=== PATIENT | male | born 1975 | race Caucasian/White ===

== ENCOUNTER → 2020-03-22 09:48 | Outpatient (CLI) | payer OTHER, SELFPAY ==
[2020-03-22 10:34] LABS: Add Manual Diff / Slide Review NO; Basophils Absolute Auto 0 /uL (0-100); Basophils Percent Auto 0.1 % (0-2); Eosinophils Absolute Auto 200 /uL (0-450); Eosinophils Percent Auto 2.2 % (2-4); Hematocrit 49.6 % (41-53); Hemoglobin 17.4 g/dL (13.5-17.5); Lymphocytes Absolute Auto 3100 /uL (1100-4500); Lymphocytes Percent Auto 37.7 % (25-40); Mean Corpuscular HGB Conc 35.1 % (30-36); Mean Corpuscular Hemoglobin 31.7 PG (26-34); Mean Corpuscular Volume 90.4 fL (80-100); Monocytes Absolute Auto 600 /uL (0-900); Monocytes Percent Auto 7.1 % (3-14); Neutrophils Absolute Auto 4300 /uL (1500-7000); Neutrophils Percent Auto 52.9 % (50-75); Platelet Count 361 X10^3/uL (150-400); Red Blood Cell Count 5.48 X10^6/uL (4.5-5.9); Red Cell Distribution Width 13.1 % (11.6-14.8); White Blood Cell Count 8.2 X10^3/uL (4.5-11.0)
[2020-03-22 10:55] LABS: Alanine Aminotransferase 50 IU/L (<50); Albumin 4.7 g/dL (3.5-5.0); Albumin Globulin Ratio 1.4 (1.0-2.8); Alkaline Phosphatase 98 U/L (38-126); Aspartate Aminotransferase 51 IU/L (17-59); BUN Creatinine Ratio 19.8 (6-22); Bilirubin Total 0.6 mg/dL (0.2-1.3); Blood Urea Nitrogen 21 mg/dL (9-20); Calcium 9.4 mg/dL (8.4-10.2); Carbon Dioxide 29 mmol/L (22-32); Chloride 103 mmol/L (98-107); Estimated Glomerular Filt Rate > 60.0 mL/min (>60); Globulin 3.4 g/dL (1.7-4.1); Glucose 101 mg/dL (70-100); HEMOLYSIS 20 (0-50); Hemoglobin A1C% w Est Avg Glu 5.1 % (4.0-6.0); Potassium 4.6 mmol/L (3.4-5.1); Sodium 139 mmol/L (137-145); Total Protein 8.1 g/dL (6.3-8.2)
[2020-03-22 11:21] LABS: TSH w/ Reflex to FT4 0.94 uIU/mL (0.47-4.68)
[2020-03-22 11:26] LABS: Prostate Specific Antigen Scrn 2.86 ng/mL (0.1-4.0)
== END ==
PROVIDERS: PCP Family Medicine; Referring Provider Family Medicine; Visit Provider Family Medicine
DX: E34.9 Endocrine disorder, unspecified (principal); I10 Essential (primary) hypertension; K21.9 Gastro-esophageal reflux disease without esophagitis
CPT/HCPCS: 36415; 80053; 83036; 84443; 85025; G0103

== ENCOUNTER → 2020-11-04 09:09 | Outpatient (CLI) | payer OTHER, SELFPAY ==
[2020-11-10 08:42] LABS: Percent Free Testosterone 3.21 % (1.50-4.20); Testosterone Free 20.51 ng/dL (5.00-21.00); Testosterone Total 638.8 ng/dL (264.0-916.0)
[2020-11-14 13:49] LABS: Estrogen 48 pg/mL (40-115)
== END ==
PROVIDERS: PCP Family Medicine; Referring Provider Family Medicine; Visit Provider Family Medicine
DX: E34.9 Endocrine disorder, unspecified (principal)
CPT/HCPCS: 36415; 82672; 84402; 84403

== ENCOUNTER → 2021-06-02 11:39 | Outpatient (CLI) | payer OTHER, SELFPAY ==
[2021-06-02 12:53] LABS: Alanine Aminotransferase 51 IU/L (<50); Albumin 4.6 g/dL (3.5-5.0); Albumin Globulin Ratio 1.6 (1.0-2.8); Alkaline Phosphatase 83 U/L (38-126); Aspartate Aminotransferase 45 IU/L (17-59); BUN Creatinine Ratio 12.4 (6-22); Bilirubin Total 0.5 mg/dL (0.2-1.3); Blood Urea Nitrogen 14 mg/dL (9-20); Calcium 9.7 mg/dL (8.4-10.2); Carbon Dioxide 29 mmol/L (22-32); Chloride 104 mmol/L (98-107); Estimated Glomerular Filt Rate > 60.0 mL/min (>60); Globulin 2.8 g/dL (1.7-4.1); Glucose 108 mg/dL (70-100); HEMOLYSIS < 15 (0-50); Potassium 4.7 mmol/L (3.4-5.1); Sodium 140 mmol/L (137-145); Total Protein 7.4 g/dL (6.3-8.2)
[2021-06-02 13:20] LABS: Prostate Specific Antigen Scrn 5.05 ng/mL (0.1-4.0)
[2021-06-11 20:22] LABS: Percent Free Testosterone 4.96 % (1.50-4.20); Testosterone Total 681.5 ng/dL (264.0-916.0)
== END ==
PROVIDERS: PCP Family Medicine; Referring Provider Family Medicine; Visit Provider Family Medicine
DX: E34.9 Endocrine disorder, unspecified (principal); I10 Essential (primary) hypertension; Z12.5 Encounter for screening for malignant neoplasm of prostate
CPT/HCPCS: 36415; 80053; 84402; 84403; G0103

== ENCOUNTER 2021-09-23 16:17 | Emergency (ER) | payer OTHER, SELFPAY ==
[2021-09-23 16:23] VITALS: BP 147/102; PULSE 80; RESP 18; TEMP 36.6; O2SAT 98; BMI 29.2
[2021-09-23] MEDS: TET,DIPH,PERTUSS(ACELL),VAC/PF 0.5 ML SYRINGE IM (16:32)
--- NOTE | 2021-09-23 19:07 | ED.UPPEXIN ---
HPI - Extremity Injury (Upper) <SHANTAL Kearns - Last Filed: 09/23/21 20:25> General Chief Complaint: Extremity Injury, Upper Stated Complaint: Drill Bit Into Lt Arm Time Seen by Provider: 09/23/21 19:00 Source: patient Mode of arrival: Ambulatory History of Present Illness HPI narrative: 46-year-old male presents to the emergency department after a puncture wound to his right forearm. Patient states that he was using a drill bit when it broke, it bounced off, punctured the left forearm. He is right handed. He pulled the drill bit out of his left arm, denies any broken pieces left in, states that the broken piece happen before he was punctured by the drill bit. He does not remember when his last tetanus was, states he would like his tetanus updated. Patient denies any current bleeding, states he put a pressure dressing on and it has been fine since. He states that he cleaned it with hydrogen peroxide, applied antibiotic ointment and covered up. His wound is approximately 4 mm x 2 mm, denies any current bleeding. He has full range of motion of his left hand, left wrist, flexion extension without any sensation changes. Related Data Home Medications Medication Instructions Recorded Confirmed syringe with needle 3 mL 23 gauge #1 each 01/28/20 06/02/21 x 1 1/2 Previous Rx's Medication Instructions Recorded omeprazole 20 mg capsule,delayed 20 mg PO DAILY #90 cap 02/22/21 release ibuprofen 800 mg tablet 800 mg PO TID PRN #60 tab 03/18/21 testosterone cypionate 200 mg/mL 100 mg (0.5 mL) IM QWEEK #10 ml 05/09/21 intramuscular oil lisinopril 20 mg tablet 20 mg PO DAILY #90 tab 05/19/21 amlodipine 2.5 mg tablet See Rx Instructions .ROUTE 08/29/21 .COMPLEX #90 tab Allergies Allergy/AdvReac Type Severity Reaction Status Date / Time anthrax vaccine Allergy Severe full body Verified 06/02/21 11:06 hives tide detergent Allergy Severe full body Uncoded 06/02/21 11:06 hives Review of Systems <SHANTAL Kearns - Last Filed: 09/23/21 20:25> Review of Systems Narrative: General: denies fever, chills, malaise, sweats, fatigue Head/Neck: denies headache, neck pain, dizziness Eyes: denies visual changes, eye pain Cardio: denies chest pain, palpitations, edema Respiratory: denies dyspnea, cough, orthopnea GI: denies abdominal pain, nausea, vomiting, or diarrhea : denies dysuria, hematuria, urinary retention, frequency or incontinence MSK: denies joint pain, muscle weakness Skin: denies rash, itching, puncture wound to the volar aspect of left forearm Neuro: denies numbness, tingling Patient History <SHANTAL Kearns - Last Filed: 09/23/21 20:25> Medical History Ankle pain (~2008) Anxiety (~2014) Chronic back pain (~2004) Depression (~2014) Elevated PSA Foot pain (~2006) GERD (gastroesophageal reflux disease) Headache (~2002) Headache Hearing loss (~2004) Hypertension (~1999) Hypotestosteronism (~2014) Insomnia Irritable bowel syndrome (~2005) Lateral epicondylitis of both elbows PTSD (post-traumatic stress disorder) (~2014) Right rotator cuff tendinitis Shoulder pain (~2004) Sleep apnea Tinnitus (~2004) Well adult exam Surgical History Anesthesia History of appendectomy (~2007) History of cholecystectomy (~2005) S/P right rotator cuff repair (~2004) Family History Father Prostate cancer Mother Hypertension Social History Smoking Status: Never smoker alcohol intake: current (rarely ) substance use type: does not use Smoking Status: Never smoker alcohol intake frequency: holidays/special occasions only Substance Use Type: does not use Exam <SHANTAL Kearns - Last Filed: 09/23/21 20:25> Narrative Exam Narrative: Independently reviewed vitals signs and nursing notes. General: cooperative, comfortable, in no acute distress, well developed and well groomed Head: atraumatic, symmetrical facial expressions Neck: supple, atraumatic, without lymphadenopathy. Eyes: pupils equal round and reactive, EOMI, conjunctiva normal Nose: nares patent, no rhinorrhea Mouth/Throat: uvula midline, moist mucus membranes Cardiovascular: regular rate and rhythm, no peripheral edema, warm extremities Respiratory: normal effort, able to speak in complete sentences, no audible wheezing, stridor, or rales. No retractions or tachypnea. MSK: moves all extremities, ambulatory w/steady gait, neurovascularly intact, no weakness, radial pulse of left is 2+, ulnar pulse is palpable, cap refill less than 2 seconds in all fingers, full flexion and extension and mobility of left wrist and fingers without deficit or significant pain. Skin: brisk capillary refill, no rash, no erythema, puncture wound to left mid forearm on volar aspect, 4 mm x 2 mm, no bleeding, wound is clean, bacitracin applied, Telfa applied with Coban. No indications for suture repair. Neuro: normal speech and cognition, A&O x3, normal tone Psych: mental status is grossly normal, congruent mood, normal affect, pleasant and cooperative Initial Vital Signs Initial Vital Signs: Vital Signs Temperature 98 F 09/23/21 16:23 Pulse Rate 80 09/23/21 16:23 Respiratory Rate 18 09/23/21 16:23 Blood Pressure 147/102 H 09/23/21 16:23 Pulse Oximetry 98 09/23/21 16:23 <Nancie Rocha MD - Last Filed: 09/24/21 17:47> Initial Vital Signs Initial Vital Signs: Vital Signs Temperature 98 F 09/23/21 16:23 Pulse Rate 80 09/23/21 16:23 Respiratory Rate 18 09/23/21 16:23 Blood Pressure 147/102 H 09/23/21 16:23 Pulse Oximetry 98 09/23/21 16:23 Course <SHANTAL Kearns - Last Filed: 09/23/21 20:25> Orders Ordered: Discontinued Medications Diphtheria/Tetanus/Acell Pertussis (Tet,Diph,Pertuss(Acell),Vac/Pf 0.5 Ml Syringe) 0.5 ml IM .ONCE ONE Stop: 09/23/21 16:29 Last Admin: 09/23/21 16:32 Dose: 0.5 ml Documented by: SERJIO Vital Signs Vital signs: Vital Signs - 8 hr 09/23/21 16:23 09/23/21 19:35 Temperature 98 F Pulse Rate 80 90 Respiratory Rate 18 14 Blood Pressure 147/102 H 136/100 H Pulse Oximetry 98 96 <Nancie Rocha MD - Last Filed: 09/24/21 17:47> Orders Ordered: Discontinued Medications Diphtheria/Tetanus/Acell Pertussis (Tet,Diph,Pertuss(Acell),Vac/Pf 0.5 Ml Syringe) 0.5 ml IM .ONCE ONE Stop: 09/23/21 16:29 Last Admin: 09/23/21 16:32 Dose: 0.5 ml Documented by: SERJIO Vital Signs Vital signs: Vital Signs - 8 hr 09/23/21 16:23 09/23/21 19:35 Temperature 98 F Pulse Rate 80 90 Respiratory Rate 18 14 Blood Pressure 147/102 H 136/100 H Pulse Oximetry 98 96 MDM - Extremity Injury (Upper) <Indigo Camejo [facility] - Last Filed: 09/23/21 20:25> MDM Narrative Medical decision making narrative: This is a 46-year-old male presents to the emergency department for left forearm injury which occurred after his drill bit broke and he punctured himself with the remaining aspect of the drill bit. He pulled it out of his arm on his own, states it bled for a couple minutes and then it stopped. Patient received a tetanus vaccination today, took ibuprofen prior to arrival, states his pain is under control. No possibility of foreign body according to the patient. Wound was cleansed irrigated with normal saline, bacitracin applied, wrapped with a Telfa and Coban dressing. Encouraged patient to let wound heal without suture repair. Patient understands to return to the emergency department for any worsening of this, streaking, signs of infection, purulence discharge, or fever. Patient is appropriate and amenable to discharge home. Vital signs are stable on repeat examination is unremarkable. Patient has been informed of results. Patient has been given strict return to ER precautions for any new or worsening symptoms. Patient understands to follow up closely with outpatient providers as instructed. Patient understands plan and agrees to discharge home. All questions and concerns answered at this time. Discharge Plan Departure Patient Disposition: Home Clinical Impression: Puncture wound Instructions: DI for Puncture Wound Activity Restrictions/Additional Instructions: *You have been diagnosed with puncture wound to your left forearm. Please apply antibiotic ointment twice a day, keep it cover with at minimum a Band-Aid. Take ibuprofen or Tylenol as needed for your pain. You can ice this, that may help with some pain as well. Try to avoid repetitive movement of her left hand as much as possible over the next few days so that this can heal without getting angry. Please come back to the ER if you start having red streaks up your arm, worsening swelling or pain, or any fever. Thank you for coming in, your tetanus is good for the next 10 years, hope it heals without incident. Impressive injury. *What to do: *Please continue to take your regular medications as directed. [ ] New medication prescriptions sent to your pharmacy: [ ] [ ] New medication written as a paper prescription [ x] No new medications given *Please follow up with your primary care provider in 2-3 days, call for an appointment. Let them know you were seen in the Emergency Department and that we asked that you be seen for follow-up. We will electronically transmit a record of today's note if your PCP is in our system *If you do not have a primary care provider please contact [phone] to establish care with one of [facility] primary care providers. *Return to Emergency Department if you should have any new, worsening or concerning symptoms, such as [fever greater than 101F, chills, worsening pain, persistent vomiting or other bothersome symptoms] Prescriptions: No Action omeprazole 20 mg capsule,delayed release(DR/EC) 20 mg PO DAILY Qty: 90 3RF ibuprofen 800 mg tablet 800 mg PO TID PRN (Reason: pain) Qty: 60 2RF testosterone cypionate 200 mg/mL oil 100 mg IM QWEEK Qty: 10 2RF lisinopril 20 mg tablet 20 mg PO DAILY Qty: 90 3RF amlodipine 2.5 mg tablet See Rx Instructions .ROUTE .COMPLEX Qty: 90 1RF Dose Instruction: TAKE 1 TABLET BY MOUTH EVERY NIGHT AT BEDTIME Rx Instructions: TAKE 1 TABLET BY MOUTH EVERY NIGHT AT BEDTIME (DME) syringe with needle 3 mL 23 gauge x 1 1/2 syringe See Rx Instructions ml .ROUTE .MEDSUPPLY Qty: 1 0RF Rx Instructions: As directed Referrals: Stu Ortiz, [Primary Care Provider] - <Nancie Rocha MD - Last Filed: 09/24/21 17:47> Cosign ED Attending Cosjoseature Attestation: I was immediately available in the department for consultation throughout this patient's visit. I agree with documentation as above. Nancie Rocha MD
[2021-09-23 19:35] VITALS: BP 136/100; PULSE 90; RESP 14; O2SAT 96
== END 2021-09-23 19:35 | disposition home or self-care (01) ==
PROVIDERS: Emergency Provider Nurse Practitioner Critical Care Medicine; PCP Family Medicine
DX: S51.832A Puncture wound without foreign body of left forearm, initial encounter (principal); W27.8XXA Contact with other nonpowered hand tool, initial encounter; Z23 Encounter for immunization
CPT/HCPCS: 90471; 99283; 90715

== ENCOUNTER → 2022-02-09 12:42 | Outpatient (CLI) | payer OTHER, SELFPAY ==
[2022-02-09 14:50] LABS: Alanine Aminotransferase 52 IU/L (<50); Albumin 4.7 g/dL (3.5-5.0); Albumin Globulin Ratio 1.3 (1.0-2.8); Alkaline Phosphatase 77 U/L (38-126); Aspartate Aminotransferase 70 IU/L (17-59); BUN Creatinine Ratio 16.3 (6-22); Bilirubin Total 0.8 mg/dL (0.2-1.3); Blood Urea Nitrogen 20 mg/dL (9-20); Calcium 9.6 mg/dL (8.4-10.2); Carbon Dioxide 27 mmol/L (22-32); Chloride 105 mmol/L (98-107); Estimated Glomerular Filt Rate > 60 mL/min (>60); Globulin 3.5 g/dL (1.7-4.1); Glucose 95 mg/dL (70-100); HEMOLYSIS 20 (0-50); Potassium 4.6 mmol/L (3.4-5.1); Sodium 138 mmol/L (137-145); Total Protein 8.2 g/dL (6.3-8.2)
[2022-02-09 15:21] LABS: TSH w/ Reflex to FT4 1.14 uIU/mL (0.47-4.68)
[2022-02-09 15:23] LABS: Prostate Specific Antigen Scrn 3.53 ng/mL (0.1-4.0)
[2022-02-18 18:07] LABS: Testosterone Free 18.47 ng/dL (5.00-21.00); Testosterone Total 839.4 ng/dL (264.0-916.0)
== END ==
PROVIDERS: PCP Family Medicine; Referring Provider Family Medicine; Visit Provider Family Medicine
DX: E34.9 Endocrine disorder, unspecified (principal); R97.20 Elevated prostate specific antigen [PSA]; Z12.5 Encounter for screening for malignant neoplasm of prostate
CPT/HCPCS: 36415; 80053; 84402; 84403; 84443; G0103

== ENCOUNTER → 2022-06-21 07:20 | Outpatient (CLI) | payer OTHER, SELFPAY | PROVIDERS: PCP Family Medicine; Visit Provider Registered Nurse | DX: R30.0 Dysuria (principal) | CPT/HCPCS: 87086 ==

== ENCOUNTER → 2022-06-29 09:05 | Outpatient (CLI) | payer OTHER, SELFPAY | PROVIDERS: PCP Family Medicine; Visit Provider Family Medicine | DX: R30.0 Dysuria (principal) | CPT/HCPCS: 87086 ==

== ENCOUNTER → 2022-06-30 07:54 | Outpatient (CLI) | payer OTHER, SELFPAY ==
[2022-06-30 08:37] LABS: Add Manual Diff / Slide Review NO; Basophils Absolute Auto 0 /uL (0-100); Basophils Percent Auto 0.2 % (0-2); Eosinophils Absolute Auto 100 /uL (0-450); Eosinophils Percent Auto 0.8 % (2-4); Hematocrit 48.9 % (41-53); Hemoglobin 16.5 g/dL (13.5-17.5); Lymphocytes Absolute Auto 2500 /uL (1100-4500); Lymphocytes Percent Auto 21.8 % (25-40); Mean Corpuscular HGB Conc 33.7 % (30-36); Mean Corpuscular Hemoglobin 30.2 PG (26-34); Mean Corpuscular Volume 89.7 fL (80-100); Monocytes Absolute Auto 800 /uL (0-900); Monocytes Percent Auto 7.4 % (3-14); Neutrophils Absolute Auto 7900 /uL (1500-7000); Neutrophils Percent Auto 69.8 % (50-75); Platelet Count 408 X10^3/uL (150-400); Red Blood Cell Count 5.45 X10^6/uL (4.5-5.9); Red Cell Distribution Width 12.6 % (11.6-14.8); White Blood Cell Count 11.3 X10^3/uL (4.5-11.0)
[2022-06-30 09:04] LABS: Alanine Aminotransferase 64 IU/L (<50); Alkaline Phosphatase 95 U/L (38-126); Aspartate Aminotransferase 47 IU/L (17-59); BUN Creatinine Ratio 15.9 (6-22); Bilirubin Total 0.6 mg/dL (0.2-1.3); Blood Urea Nitrogen 18 mg/dL (9-20); Calcium 9.4 mg/dL (8.4-10.2); Carbon Dioxide 29 mmol/L (22-32); Chloride 102 mmol/L (98-107); Cholesterol 218 mg/dL (140-199); Estimated Glomerular Filt Rate > 60 mL/min (>60); Glucose 95 mg/dL (70-100); HDL Cholesterol 35 mg/dL (40-60); HEMOLYSIS < 15 (0-50); LDL Cholesterol Calculated 132 mg/dL (<100); Potassium 4.8 mmol/L (3.4-5.1); Sodium 140 mmol/L (137-145); Total Protein 7.7 g/dL (6.3-8.2); Triglycerides 254 mg/dL (35-150)
[2022-06-30 09:36] LABS: Prostate Specific Antigen 14.3 ng/mL (0.10-4.00)
[2022-06-30 16:48] LABS: Albumin 4.4 g/dL (3.5-5.0); Albumin Globulin Ratio 1.3 (1.0-2.8); Globulin 3.3 g/dL (1.7-4.1)
[2022-07-06 09:36] LABS: Percent Free Testosterone 1.87 % (1.50-4.20); Testosterone Total 304.7 ng/dL (264.0-916.0)
== END ==
PROVIDERS: PCP Family Medicine; Referring Provider Family Medicine; Visit Provider Family Medicine
DX: E34.9 Endocrine disorder, unspecified (principal); F41.9 Anxiety disorder, unspecified; G47.00 Insomnia, unspecified; I10 Essential (primary) hypertension; R97.20 Elevated prostate specific antigen [PSA]
CPT/HCPCS: 36415; 80053; 80061; 84153; 84402; 84403; 85025

== ENCOUNTER → 2022-08-14 07:56 | Outpatient (CLI) | payer OTHER, SELFPAY ==
[2022-08-14 09:05] LABS: Appearance Urine UA CLEAR; Bilirubin Urine UA NEGATIVE (NEGATIVE); Color Urine UA YELLOW; Glucose Urine UA NEGATIVE (Negative); Ketones Urine UA NEGATIVE (NEGATIVE); Leukocyte Esterase Urine UA NEGATIVE (NEGATIVE); Nitrite Urine UA NEGATIVE (Negative); Occult Blood Urine UA NEGATIVE (Negative); Protein Urine UA NEGATIVE (Negative); Specific Gravity Urine UA 1.025 (1.000-1.035); Urobilinogen Urine UA 0.2 E.U./dL (0.2); pH Urine UA 5.5 (4.5-8.0)
[2022-08-14 09:13] LABS: Bacteria Urine None Seen; Culture Indicated Urine Cult Not Indicated; RBC Urine None Seen (0-5/HPF); Urine Comments Microscopic Normal; WBC Urine None Seen (0-5/HPF)
[2022-08-14 09:48] LABS: Add Manual Diff / Slide Review NO; Basophils Absolute Auto 0 /uL (0-100); Basophils Percent Auto 0.1 % (0-2); Eosinophils Absolute Auto 100 /uL (0-450); Eosinophils Percent Auto 1.8 % (2-4); Hematocrit 48.7 % (41-53); Hemoglobin 17.2 g/dL (13.5-17.5); Lymphocytes Absolute Auto 2900 /uL (1100-4500); Lymphocytes Percent Auto 46.8 % (25-40); Mean Corpuscular HGB Conc 35.3 % (30-36); Mean Corpuscular Hemoglobin 30.8 PG (26-34); Mean Corpuscular Volume 87.4 fL (80-100); Monocytes Absolute Auto 500 /uL (0-900); Monocytes Percent Auto 8.8 % (3-14); Neutrophils Absolute Auto 2600 /uL (1500-7000); Neutrophils Percent Auto 42.5 % (50-75); Platelet Count 328 X10^3/uL (150-400); Red Blood Cell Count 5.57 X10^6/uL (4.5-5.9); White Blood Cell Count 6.1 X10^3/uL (4.5-11.0)
== END ==
PROVIDERS: PCP Family Medicine; Referring Provider Family Medicine; Visit Provider Family Medicine
DX: N41.0 Acute prostatitis (principal)
CPT/HCPCS: 36415; 81001; 84153; 85025

== ENCOUNTER → 2022-10-06 08:34 | Outpatient (CLI) | payer OTHER, SELFPAY ==
[2022-10-06 09:25] LABS: Add Manual Diff / Slide Review NO; Basophils Absolute Auto 0 /uL (0-100); Basophils Percent Auto 0.2 % (0-2); Eosinophils Absolute Auto 200 /uL (0-450); Eosinophils Percent Auto 2.3 % (2-4); Hemoglobin 16.6 g/dL (13.5-17.5); Lymphocytes Absolute Auto 2500 /uL (1100-4500); Lymphocytes Percent Auto 37.1 % (25-40); Mean Corpuscular HGB Conc 34.5 % (30-36); Mean Corpuscular Volume 89.7 fL (80-100); Monocytes Absolute Auto 1000 /uL (0-900); Monocytes Percent Auto 14.6 % (3-14); Neutrophils Absolute Auto 3000 /uL (1500-7000); Neutrophils Percent Auto 45.8 % (50-75); Platelet Count 354 X10^3/uL (150-400); Red Blood Cell Count 5.35 X10^6/uL (4.5-5.9); White Blood Cell Count 6.6 X10^3/uL (4.5-11.0)
== END ==
PROVIDERS: PCP Family Medicine; Referring Provider Family Medicine; Visit Provider Family Medicine
DX: N41.0 Acute prostatitis (principal); I10 Essential (primary) hypertension
CPT/HCPCS: 36415; 84153; 85025

== ENCOUNTER → 2023-02-23 13:44 | Outpatient (CLI) | payer OTHER, SELFPAY ==
--- NOTE | 2023-02-23 13:45 | DI.RAD.S_ITS ---
PROCEDURE: XR LUMBAR SPINE 2-3V INDICATIONS: Worsening lower back pain TECHNIQUE: 3 views of the lumbar spine were acquired. COMPARISON: None. FINDINGS: Bones: 5 [id number] vertebrae are present. There is normal bony alignment. No vertebral body compression fractures. No suspicious bony lesions. Multilevel disc space narrowing degenerative endplate changes are most prominent at the L5-S1 level. There is mild multilevel facet hypertrophy. Soft tissues: Overlying bowel gas pattern is normal. No suspicious soft tissue calcifications. Right upper quadrant surgical clips. IMPRESSION: Multilevel spondylosis is most prominent at the L5-S1 level. Approved by: Merrick Ortiz M.D. on 02/23/2023 at 17:30
[2023-02-23 15:11] LABS: Prostate Specific Antigen 4.51 ng/mL (0.10-4.00)
== END ==
PROVIDERS: PCP Family Medicine; Referring Provider Family Medicine; Visit Provider Family Medicine
DX: M47.817 Spondylosis without myelopathy or radiculopathy, lumbosacral region (principal); M47.816 Spondylosis without myelopathy or radiculopathy, lumbar region; N40.0 Benign prostatic hyperplasia without lower urinary tract symptoms; M54.9 Dorsalgia, unspecified; G89.29 Other chronic pain
CPT/HCPCS: 36415; 72100; 84153

== ENCOUNTER → 2023-05-25 08:43 | Outpatient (CLI) | payer OTHER, SELFPAY ==
--- NOTE | 2023-05-25 08:44 | DI.RAD.S_ITS ---
PROCEDURE: XR SHOULDER LT MIN 2V INDICATIONS: left shoulder pain, felt pop after lifting 1 week ago TECHNIQUE: 3 views of the shoulder were acquired. COMPARISON: None. FINDINGS: Bones: No fractures or dislocations. No suspicious bony lesions. Visualized ribs appear intact. Soft tissues: No suspicious soft tissue calcifications. IMPRESSION: No acute bony abnormality. Dictated by: Ira De Jesus M.D. on 05/25/2023 at 9:15 Approved by: Ira De Jesus M.D. on 05/25/2023 at 9:17
== END ==
PROVIDERS: PCP Family Medicine; Referring Provider Physician Assistant; Visit Provider Physician Assistant
DX: M25.512 Pain in left shoulder (principal)
CPT/HCPCS: 73030

== ENCOUNTER → 2023-06-18 09:19 | Outpatient (CLI) | payer OTHER, SELFPAY ==
--- NOTE | 2023-06-18 09:20 | DI.MRI.S_ITS ---
PROCEDURE: MR SHOULDER LT WO CON INDICATIONS: left should pain ? rotator cuff tear TECHNIQUE: Noncontrast oblique coronal T2 fast spin echo with fat saturation, oblique sagittal T1 spin echo and T2 fast spin echo with fat saturation, axial T1 spin echo and T2 fast spin echo with fat saturation through the shoulder. COMPARISON: [facility], CR, XR SHOULDER LT MIN 2V, 05/25/2023, 8:51. FINDINGS: Image quality: Excellent. Rotator cuff: There is full-thickness partial width tearing of the posterior supraspinatus tendon and the anterior infraspinatus tendon at their distal insertions measuring 1.0 cm in anterior-posterior dimension with proximal tendon retraction measuring up to 1.8 cm. Findings are superimposed on chronic tendinosis. The teres minor tendon is intact. There is mild subscapularis tendinosis. Rotator cuff muscles are well developed. There is increased T2-weighted signal within the teres minor muscle that is suspicious for mild or early denervation changes. No mass is seen along the course of the axillary nerve. Bones and bursae: No acute trabecular bone injury or fracture. No focal glenohumeral cartilage defect. Moderate degenerative changes are seen at the acromioclavicular joint with subchondral cystic changes and marginal osteophyte formation. There is a small amount of subacromial/subdeltoid bursal fluid, which communicates with the glenohumeral joint space. No significant glenohumeral joint effusion is seen. Capsule and soft tissues: No displaced labral tear is seen. Proximal biceps long head tendon demonstrates normal signal intensity and location. Mild partial effacement of the fat in the rotator interval. Glenohumeral ligaments appear to be intact IMPRESSION: 1. Full-thickness, partial width tearing posterior supraspinatus tendon and the anterior infraspinatus tendon at their distal insertions measuring 1.0 cm in anterior-posterior dimension with proximal tendon retraction measuring up to 1.8 cm. Mild diffuse rotator cuff tendinosis. 2. Mildly increased T2-weighted signal within the teres minor muscle is suspicious for mild or early denervation changes. No significant fatty infiltration is seen. No mass is seen along the course of the axillary nerve. 3. Moderate acromioclavicular joint osteoarthrosis. 4. Small subacromial/subdeltoid bursal effusion communicates with the glenohumeral joint space. Approved by: Merrick Ortiz M.D. on 06/19/2023 at 9:14
== END ==
LOC: MRI 09:19
PROVIDERS: PCP Family Medicine; Referring Provider Orthopaedic Surgery; Visit Provider Orthopaedic Surgery
DX: M75.122 Complete rotator cuff tear or rupture of left shoulder, not specified as traumatic (principal); M19.012 Primary osteoarthritis, left shoulder; M25.412 Effusion, left shoulder
CPT/HCPCS: 73221

== ENCOUNTER 2023-08-02 09:54 | Day surgery (SDC) | payer OTHER, SELFPAY ==
[2023-08-02 10:10] VITALS: BP 154/109; PULSE 103; RESP 17; TEMP 35.9; O2SAT 97
[2023-08-02] MEDS: LACTATED RINGERS 1,000 ML 42 ML IV (10:29)
--- NOTE | 2023-08-02 10:45 | P.HP_ITS ---
History of Present Illness History of Present Illness Date Patient Seen: 08/02/23 Chief complaint: Colonoscopy Narrative: Dagoberto is a 48-year-old man who is here for a screening colonoscopy. He has never had 1 before. No family history of colon cancer. No current GI complaints. ON LICENSE OF [facility] Medical History Elevated PSA Preventative health care BPH (benign prostatic hyperplasia) Acute prostatitis Headache Insomnia Right rotator cuff tendinitis Lateral epicondylitis of both elbows Sleep apnea Well adult exam PTSD (post-traumatic stress disorder) (~2014) Depression (~2014) Anxiety (~2014) Headache (~2002) Shoulder pain (~2004) Foot pain (~2006) Chronic back pain (~2004) Ankle pain (~2008) Tinnitus (~2004) Hearing loss (~2004) Irritable bowel syndrome (~2005) Hypotestosteronism (~2014) GERD (gastroesophageal reflux disease) Hypertension (~1999) Surgical History Anesthesia History of appendectomy (~2007) History of cholecystectomy (~2005) S/P right rotator cuff repair (~2004) Family History Father Prostate cancer Mother Hypertension Social History Smoking Status: Never smoker alcohol intake: current substance use type: does not use Meds Home Medications and Allergies Home Medications Medication Instructions Recorded Confirmed Type syringe with needle 3 mL 23 gauge #1 ea 01/28/20 05/25/23 History x 1 1/2 amlodipine 2.5 mg tablet See Rx Instructions .Route 08/29/21 08/02/23 Rx .COMPLEX #90 tabs lisinopril 20 mg tablet 20 mg PO DAILY #90 tabs 05/15/22 08/02/23 Rx testosterone cypionate 200 mg/mL 100 mg (0.5 mL) IM QWEEK #10 mL 11/09/22 08/02/23 Rx intramuscular oil omeprazole 20 mg capsule,delayed See Rx Instructions .Route 02/08/23 08/02/23 Rx release .COMPLEX #90 caps ibuprofen 800 mg tablet See Rx Instructions .Route 07/06/23 08/02/23 Rx .COMPLEX #60 tabs Allergies Allergy/AdvReac Type Severity Reaction Status Date / Time anthrax vaccine Allergy Severe full body Verified 08/02/23 10:05 hives tide detergent Allergy Severe full body Uncoded 05/25/23 08:21 hives Exam Vital Signs (past 8 hours): - 08/02/23 10:10 Temperature 96.7 F L Pulse Rate 103 H Respiratory Rate 17 Blood Pressure 154/109 H Pulse Oximetry 97 Oxygen Delivery Method Room Air Oxygen Delivery Method Room Air Const General: healthy appearing Resp Effort & Inspection: normal respiratory effort Assessment & Plan Assessment and plan (1) Colon cancer screening: Status: Acute Plan 48-year-old man at average risk for colon cancer. We reviewed risks and benefits of colonoscopy for colon cancer screening and he would like to proceed.
[2023-08-02 11:15] VITALS: BP 117/75; PULSE 76; RESP 16; TEMP 36.2; O2SAT 98
--- NOTE | 2023-08-02 11:15 | PM.OP.COLON ---
Operative Date/Time/Diagnoses Date of procedure: 08/02/23 Time of procedure: 11:15 Pre-op diagnosis: Colon cancer screening Post-op diagnosis: same Procedure & Clinicians Study performed: Colonoscopy Same procedure as scheduled: Yes Surgeon: Adan Morin Procedure Notes Procedure in detail: Surgeon: Adan Morin MD Anesthesia: Ayaz De La Torre MD Procedure: The patient was brought to the endoscopy suite, placed in left lateral decubitus position. The patient was connected to monitoring devices. A time-out was performed. Sedation was administered. Once the patient was adequately sedated, a digital rectal exam was performed and was normal. The scope was then inserted and advanced to the cecum where the appendiceal orifice was identified and photographed. The scope was then slowly withdrawn over greater than 6 minutes. The mucosa was thoroughly inspected. No polyps were found. There was some moderate sigmoid diverticulosis. The scope was retroflexed in the rectum. No other abnormalities were seen. The scope was straightened and removed. The patient was awakened and brought to recovery. Scope withdrawal time: 6 minutes Sedation time: 17 minutes EBL: 0 Findings: Sigmoid diverticulosis Post-procedure Recommendations: Colonoscopy in 10 years Disposition: PACU
[2023-08-02 11:20] VITALS: BP 112/70; PULSE 74; RESP 16; O2SAT 98
[2023-08-02 11:37] VITALS: BP 110/70; PULSE 68; RESP 16; TEMP 36.8; O2SAT 98
== END 2023-08-02 11:45 | disposition home or self-care (01) ==
PROVIDERS: PCP Family Medicine; Referring Provider Surgery; Visit Provider Surgery
PROC: 0DJD8ZZ Inspection of Lower Intestinal Tract, Via Natural or Artificial Opening Endoscopic (ICD-10-PCS; CPT 45378; principal; 2023-08-02 10:45)
DX: Z12.11 Encounter for screening for malignant neoplasm of colon (principal); K57.30 Diverticulosis of large intestine without perforation or abscess without bleeding
CPT/HCPCS: 45378; J2704

== ENCOUNTER 2023-08-16 06:01 | Day surgery (SDC) | payer OTHER, SELFPAY ==
[2023-08-14 14:40] VITALS: BMI 30.5
[2023-08-16] VITALS (8 sets, daily range): BP systolic 131–154; BP diastolic 93–107; PULSE 91–101; RESP 12–19; TEMP 36.1–36.7; O2SAT 94–98; BMI 30.5
[2023-08-16] MEDS: ACETAMINOPHEN 325 MG TABLET 975 MG PO (07:15)
[2023-08-16] MEDS: LACTATED RINGERS 1,000 ML 42 ML IV ×2 (07:16→08:48)
--- NOTE | 2023-08-16 07:40 | PM.PREOP ---
Pre-operative Note Interval Note History & Physical reviewed/Exam performed by Physician: Yes Changes to H&P: No
--- NOTE | 2023-08-16 07:41 | SUR.OPER ---
Lateral on padded OR bed with jefferson bag positioner, head on pillow, gel axillary roll in place, bottom leg bent with gel pad under knee to foot, upper leg straight and supported with pillows. Operative arm secured in shoulder positioning suspension device. non-operative arm secured on padded arm board. Safety belt at hip, tape over blanket securing lower legs.
[2023-08-16] MEDS: CEFAZOLIN 2 GM/100 ML PREMIX 100 ML IV (08:00)
[2023-08-16] MEDS: TRANEXAMIC ACID 1,000 MG VIAL 1000 MG INJ (08:00)
[2023-08-16] MEDS: BUPIVACAINE 0.5% (PF) 30 ML, EPINEPHrine 0.15 MG INJ (08:46)
--- NOTE | 2023-08-16 09:46 | P.OP_ITS ---
Operative Date/Time/Diagnoses Date of procedure: 08/16/23 Time of procedure: 09:47 Pre-op diagnosis: Left rotator cuff tear Post-op diagnosis: same Procedure & Clinicians Procedure: Left rotator cuff repair, subacromial decompression, acromioplasty, extensive debridement Same procedure as scheduled: Yes Indications: Indications: Dagoberto is a 48-year-old male who Has a history of right shoulder pain. Has had no response thus far to nonoperative treatment. We discussed at length that surgery for a rotator cuff tear is primarily for pain and no guarantees were made regarding strength and range of motion. Patient was again explained the risks, benefits and alternatives to surgery. All questions were answered. The patient wished to proceed. Surgeon: Fabien Bryant Mortgage Manager: Rosalee Gunter Anesthesia Type: General Operative Notes Findings: Findings: Glenohumeral joint-mild signs of osteoarthritis with grade 1 chondromalacia. There is degenerative changes noted to the labrum anteriorly and posteriorly Biceps tendon: Intact Subscapularis: Intact Inferior capsule: Intact Rotator cuff: The supraspinatus had a complete tear at the footprint Subacromial space: Extensive synovitis, acromial spur noted Closure Type: primary Specimen(s): none sent Prosthetic devices, grafts, tissues, transplants, or devices: Implants: 2.8 mm FiberTak x2, SwiveLock x2 Estimated Blood Loss (mL): 5 Blood products transfused: none Procedure in detail: The patient was seen preoperatively. Risks and benefits were explained, and my initials were marked on the right shoulder. A block was performed by anesthesia. The patient was brought to the operating room and placed supine on the operating table and underwent smooth induction of general anesthesia. There were then placed into a lateral decubitus position. 2 g of Ancef were given intravenously prior to the start of the operation, and 1 g of TXA was also given. The arm was prepped and draped in the standard sterile fashion using chlorhexidine. Appropriate drying time was observed. Before beginning the procedure, a time-out was performed and again my initials were confirmed the correct side. 15 cc of 0.25% Marcaine with epinephrine were injected into the subacromial space prior to start. A standard posterior portal was then established. On entering the glenohumeral joint there was the above-noted cartilage pathology. An anterior portal was established outside in. In the glenohumeral joint, the biceps was noted to be partially torn and erythematous and the subscapularis was intact. The undersurface of the rotator cuff was torn at the footprint and was noted to be communicating. The inferior capsule was noted to be intact. There was some labral degeneration noted both anterior and posterior. Extensive synovitis not ed. The labral tissue was examined, it was noted to have [id number] degenerative changes with fraying and tearing. There was subsequent expected degenerative changes in synovitis along the anterior articular capsule and a reflection of the capsule onto the glenoid bone. There were synovitic changes at the biceps tendon and its anchor on the supraglenoid tubercle. For these aforementioned reasons, arthroscopic debridement was performed with a 4.0 mm shaver, through the anterior portal, of the labral tissue, the articular capsule, biceps anchor complex, and glenoid bone. We then established into the subacromial space and a lateral portal was made. A bursectomy was then performed. The coracoclavicular ligament was minimally released off the anterior acromion and a gentle acromioplasty was performed enough for better visualization and to remove significant spurs. This was done with a 4.0 mm shaver and transformed the acromion from a type 2 acromion into a type 1 acromion. Once bursectomy, acromioplasty was performed we had full visualization of the rotator cuff. It was noted at this time that the patient had complete 1.5 cm tear of the supraspinatus. We then freshened up the footprint with a shaver and debrided the cuff tear edges. Two medial row Anchors were placed. I then passed sequentially from anterior to posterior. 2 lateral row trans osseous equivalent knotless anchors were placed creating a secure double row repair. Final arthroscopic pictures were obtained demonstrating a secure repair. The wounds were closed with 3-0 Monocryl and dressed with Xeroform, 4x4s, ABDs and they were placed into a sling. Patient was woken from anesthesia and transported to recovery unit without any complications. Assisting participation: This operation could not have been safely performed (without compromising the technical results or length of the procedure) without the assistance of a skilled surgical corsetier. The surgical corsetier was medically necessary for proper positioning, retraction and manipulation of instruments, proper exposure, graft prep, and manipulation of tissue. Post-operative Plan for aftercare: Postoperatively patient will be nonweightbearing to the operative extremity. Must remain in a sling for 6 weeks with no active range of motion. Okay for dr gurrola to come off in 3 days, take a shower with warm soap and water and then placed Band-Aids over the wounds. After a total of 5 days from surgery all dressings may come off. Keep follow-up appointment in 2 weeks.
[2023-08-16] MEDS: ALBUTEROL/IPRATROPIUM 3 ML AMPUL INH (09:59)
== END 2023-08-16 11:15 | disposition home or self-care (01) ==
PROVIDERS: PCP Family Medicine; Referring Provider Orthopaedic Surgery; Visit Provider Orthopaedic Surgery
PROC: (CPT 29827; principal; 2023-08-16 07:45)
DX: S46.012A Strain of muscle(s) and tendon(s) of the rotator cuff of left shoulder, initial encounter (principal); M19.012 Primary osteoarthritis, left shoulder; M75.42 Impingement syndrome of left shoulder; G89.18 Other acute postprocedural pain; M94.212 Chondromalacia, left shoulder; M65.812 Other synovitis and tenosynovitis, left shoulder
CPT/HCPCS: 29827; 29823; 29826; 64415; J0171; J0690; J1100; J1885; J2250; J2405; J2704; J3010

== ENCOUNTER → 2023-11-29 07:51 | Outpatient (CLI) | payer OTHER, SELFPAY ==
[2023-11-29 08:35] LABS: Add Manual Diff / Slide Review NO; Appearance Urine UA CLEAR; Basophils Absolute Auto 0 /uL (0-100); Basophils Percent Auto 0.5 % (0-2); Bilirubin Urine UA NEGATIVE (NEGATIVE); Color Urine UA YELLOW; Eosinophils Absolute Auto 100 /uL (0-450); Eosinophils Percent Auto 1.4 % (2-4); Glucose Urine UA NEGATIVE (Negative); Hematocrit 51.9 % (41-53); Hemoglobin 17.9 g/dL (13.5-17.5); Ketones Urine UA NEGATIVE (NEGATIVE); Leukocyte Esterase Urine UA NEGATIVE (NEGATIVE); Lymphocytes Absolute Auto 2600 /uL (1100-4500); Lymphocytes Percent Auto 41.8 % (25-40); Mean Corpuscular HGB Conc 34.5 % (30-36); Mean Corpuscular Hemoglobin 30.4 PG (26-34); Mean Corpuscular Volume 88.3 fL (80-100); Monocytes Absolute Auto 600 /uL (0-900); Monocytes Percent Auto 9.4 % (3-14); Neutrophils Absolute Auto 2900 /uL (1500-7000); Neutrophils Percent Auto 46.9 % (50-75); Nitrite Urine UA POSITIVE (Negative); Occult Blood Urine UA NEGATIVE (Negative); Platelet Count 384 X10^3/uL (150-400); Protein Urine UA NEGATIVE (Negative); Red Blood Cell Count 5.87 X10^6/uL (4.5-5.9); Red Cell Distribution Width 13.1 % (11.6-14.8); Specific Gravity Urine UA >=1.030 (1.000-1.035); Urobilinogen Urine UA 0.2 E.U./dL (0.2); White Blood Cell Count 6.3 X10^3/uL (4.5-11.0); pH Urine UA 5.5 (4.5-8.0)
[2023-11-29 08:46] LABS: Bacteria Urine None Seen; Culture Indicated Urine Specimen Cultured; Mucus Urine 2+ (Negative); RBC Urine None Seen (0-5/HPF); Squamous Epithelial Cell Urine None Seen (0-5/HPF); Urine Volume 10mL (spun); WBC Urine 1-5/HPF (0-5/HPF)
[2023-11-29 09:16] LABS: Prostate Specific Antigen 4.81 ng/mL (0.10-4.00)
[2023-11-30 13:10] LABS: HSV1IGG < 0.91 index (0.00-0.90)
== END ==
LOC: LAB 07:52
PROVIDERS: PCP Family Medicine; Referring Provider Nurse Practitioner Family; Visit Provider Nurse Practitioner Family
DX: B00.9 Herpesviral infection, unspecified (principal); R97.20 Elevated prostate specific antigen [PSA]; N40.0 Benign prostatic hyperplasia without lower urinary tract symptoms; N41.0 Acute prostatitis
CPT/HCPCS: 36415; 81001; 84153; 85025; 86695; 86696; 87086

== ENCOUNTER → 2024-05-23 15:41 | Outpatient (CLI) | payer OTHER, SELFPAY ==
--- NOTE | 2024-05-23 15:42 | DI.MRI.S_ITS ---
PROCEDURE: MR PELVIC PROSTATE PROTOCOL INDICATIONS: Elevated PSA family history prostate cancer TECHNIQUE: Coronal HASTE, axial T1 FSE with fat saturation, 3-plane nonbreath-hold T2 FSE. After the administration of contrast, dynamic axial, delayed axial and coronal VIBE or 2-D FLASH with fat saturation through the pelvis. Diffusion weighted imaging and ADC was performed. COMPARISON: None. FINDINGS: Image quality: Diffusion weighted and dynamic contrast enhanced images are diagnostic. Prostate: Gland size is 4.8 x 3.5 x 3.5 cm; ellipsoid gland volume is 30.6 mL. PSA density of 0.15. Lesion 1: Location: Left lateral peripheral zone, mid gland, on axial series 5, image 10 and coronal series 6, image 14. Size: 1.4 x 1.1 cm. T2W signal: Hypointense. DWI signal: Markedly hyperintense. ADC signal: Markedly hypointense. Enhancement: Yes. Extracapsular extension: No. No neurovascular involvement. PI-RADS score: 4 Lesion 2: Location: Right lateral peripheral zone, mid gland, on axial series 5, image 10 and coronal series 6, image 14. Size: 1.2 x 0.6 cm. T2W signal: Hypointense. DWI signal: Markedly hyperintense. ADC signal: Markedly hypointense. Enhancement: Yes. Extracapsular extension: No. No neurovascular involvement. PI-RADS score: 4 Genitourinary system: Bladder wall thickness is normal. Distal ureters are non distended. Bowel and peritoneum: No pathologic free pelvic fluid. Inferior colon and small bowel loops are normal in caliber. Colonic diverticulosis without evidence of diverticulitis. Nodes and vessels: No pelvic or inguinal adenopathy by size criteria. Iliac vessels are normal in caliber. Soft tissues: No inguinal hernias. Bones: Marrow demonstrates normal overall signal, without lesions to suggest metastases. IMPRESSION: A couple of PI-RADS 4 lesions, as described above. No pelvic lymphadenopathy by size criteria. No aggressive osseous abnormality. Dictated by: Hang Woodall M.D. on 05/24/2024 at 8:06 Approved by: Hang Woodall M.D. on 05/24/2024 at 8:15
== END ==
PROVIDERS: PCP Family Medicine; Referring Provider Urology; Visit Provider Urology
DX: N42.9 Disorder of prostate, unspecified (principal); R97.20 Elevated prostate specific antigen [PSA]; K57.90 Diverticulosis of intestine, part unspecified, without perforation or abscess without bleeding; Z80.42 Family history of malignant neoplasm of prostate
CPT/HCPCS: 72197; A9579

== ENCOUNTER → 2024-09-12 09:09 | Outpatient (CLI) | payer OTHER, SELFPAY ==
[2024-09-12 10:09] LABS: Hemoglobin 16.2 g/dL (13.5-17.5); Mean Corpuscular HGB Conc 35.2 % (30-36); Mean Corpuscular Hemoglobin 30.9 PG (26-34); Mean Corpuscular Volume 87.7 fL (80-100); Platelet Count 383 X10^3/uL (150-400); Red Blood Cell Count 5.25 X10^6/uL (4.5-5.9); Red Cell Distribution Width 12.8 % (11.6-14.8); White Blood Cell Count 6.6 X10^3/uL (4.5-11.0)
[2024-09-12 10:31] LABS: Cholesterol 249 mg/dL (140-199); HDL Cholesterol 39 mg/dL (40-60); LDL Cholesterol Calculated 142 mg/dL (<100); Triglycerides 338 mg/dL (35-150)
[2024-09-12 10:34] LABS: Neutrophils Absolute Manual 2706 /uL (3000-5900); RBC Morphology Normal Morphology; Total Cells Counted 100
[2024-09-12 11:01] LABS: Prostate Specific Antigen 6.48 ng/mL (0.10-4.00)
[2024-09-24 08:09] LABS: Percent Free Testosterone 3.05 % (1.50-4.20); Testosterone Free 11.14 ng/dL (5.00-21.00); Testosterone Total 365.2 ng/dL (264.0-916.0)
== END ==
PROVIDERS: PCP Family Medicine; Referring Provider Family Medicine; Visit Provider Family Medicine
DX: N41.1 Chronic prostatitis (principal); N40.1 Benign prostatic hyperplasia with lower urinary tract symptoms; N13.8 Other obstructive and reflux uropathy; N39.0 Urinary tract infection, site not specified; R97.20 Elevated prostate specific antigen [PSA]; R93.89 Abnormal findings on diagnostic imaging of other specified body structures; R79.89 Other specified abnormal findings of blood chemistry; I10 Essential (primary) hypertension; E34.9 Endocrine disorder, unspecified; Z80.42 Family history of malignant neoplasm of prostate
CPT/HCPCS: 36415; 80061; 84153; 84402; 84403; 85025; 99214

== ENCOUNTER → 2025-02-20 07:59 | Outpatient (CLI) | payer OTHER, SELFPAY ==
--- NOTE | 2025-02-20 08:00 | DI.RAD.S_ITS ---
PROCEDURE: XR SHOULDER LT MIN 2V INDICATIONS: Progressive left shoulder pain status post repair TECHNIQUE: 3 views of the shoulder were acquired. COMPARISON: [facility], CR, XR SHOULDER LT MIN 2V, 05/25/2023, 8:51. FINDINGS: Bones: No fractures or dislocations. Mild glenohumeral joint space narrowing and marginal osteophytosis and mild to moderate hypertrophic acromioclavicular arthropathy. No suspicious bony lesions. Visualized ribs appear intact. Soft tissues: No suspicious soft tissue calcifications. IMPRESSION: Degenerative change of the glenohumeral and acromioclavicular joints without evidence of acute bony abnormality. Dictated by: Meño Milan M.D. on 02/23/2025 at 5:42 Approved by: Meño Milan M.D. on 02/23/2025 at 5:43
== END ==
PROVIDERS: PCP Family Medicine; Referring Provider Family Medicine; Visit Provider Family Medicine
DX: F32.9 Major depressive disorder, single episode, unspecified (principal); Z98.890 Other specified postprocedural states
CPT/HCPCS: 73030

== ENCOUNTER → 2025-05-28 10:00 | Outpatient (CLI) | payer OTHER, SELFPAY ==
[2025-05-28 11:00] LABS: Add Manual Diff / Slide Review NO; Hematocrit 47.9 % (41-53); Hemoglobin 16.9 g/dL (13.5-17.5); Lymphocytes Absolute Auto 2600 /uL (1100-4500); Mean Corpuscular HGB Conc 35.3 % (30-36); Mean Corpuscular Hemoglobin 31.0 PG (26-34); Mean Corpuscular Volume 87.8 fL (80-100); Platelet Count 405 X10^3/uL (150-400)
[2025-05-28 11:28] LABS: Alanine Aminotransferase 81 IU/L (<50); Albumin 5.1 g/dL (3.5-5.0); Albumin Globulin Ratio 1.4 (1.0-2.8); Alkaline Phosphatase 83 U/L (38-126); Blood Urea Nitrogen 19 mg/dL (9-20); Calcium 9.9 mg/dL (8.4-10.2); Carbon Dioxide 26 mmol/L (22-32); Chloride 101 mmol/L (98-107); Cholesterol 262 mg/dL (140-199); Estimated Glomerular Filt Rate > 60 mL/min (>60); Globulin 3.7 g/dL (1.7-4.1); Glucose 106 mg/dL (70-99); HDL Cholesterol 47 mg/dL (40-60); HEMOLYSIS < 15 (0-50); Potassium 4.0 mmol/L (3.4-5.1); Sodium 139 mmol/L (137-145); Total Protein 8.8 g/dL (6.3-8.2); Triglycerides 305 mg/dL (35-150)
[2025-05-29 06:39] LABS: PSA, Total 3.5 ng/mL (0.0-4.0)
== END ==
PROVIDERS: PCP Family Medicine; Referring Provider Family Medicine; Visit Provider Family Medicine
DX: E78.5 Hyperlipidemia, unspecified (principal); N40.1 Benign prostatic hyperplasia with lower urinary tract symptoms; N13.8 Other obstructive and reflux uropathy; I10 Essential (primary) hypertension
CPT/HCPCS: 36415; 80053; 80061; 84153; 84154; 84402; 84403; 85025